=== PATIENT | female | born 1955 | race Caucasian/White ===

== ENCOUNTER 2019-01-04 06:45 | Emergency (ER) | payer MEDICARE, OTHER ==
[~2019-01-04] VITALS: Wt 74.0 kg
[2019-01-04 06:49] VITALS: BP 127/61; PULSE 74; RESP 18; Wt 74.0 kg
[2019-01-04] MEDS ORDERED: ACETAMINOPHEN 500 MG TAB PO STA (07:05)
[2019-01-04] MEDS ORDERED: IBUPROFEN 800 MG TAB PO ONE (07:30)
[2019-01-04] MEDS ORDERED: BENZ-6 PO (07:56)
[2019-01-04] MEDS ORDERED: ACET500C5 PO (07:56)
[2019-01-04] MEDS ORDERED: PROM6.2515 PO (07:56)
[2019-01-04] MEDS ORDERED: IBUP800T48 PO (07:56)
--- NOTE | 2019-01-04 08:34 | ERD ---
ER Documentation Chief Complaint Chief Complaint cough x 7 days HPI 63-year-old female presenting with fevers, body aches, productive cough, runny nose, sore throat, generalized abdominal pain x1 week. Patient denies any changes in urination or vomit. She has not taken medications today. Denies chest pain or shortness of breath. Medical history is bipolar. Surgical history pelvic sling. Social history denies ROS All systems reviewed and are negative except as per history of present illness. Medications Home Meds Active Scripts Promethazine Hcl* (Promethazine Hcl* Syrup) 6.25 Mg/5 Ml Syrup, 6.25 MG PO Q6H PRN for COUGH, #100 ML Prov:FEI BOWDEN PA-C 01/04/19 Benzonatate* (Tessalon Perle*) 100 Mg Capsule, 100 MG PO Q8H PRN for COUGH, #30 CAP Prov:FEI BOWDEN PA-C 01/04/19 Acetaminophen* (Tylophen*) 500 Mg Capsule, 2 CAP PO Q8H PRN for PAIN AND OR ELEVATED TEMP, #20 CAP Prov:FEI BOWDEN PA-C 01/04/19 Ibuprofen* (Motrin*) 800 Mg Tab, 800 MG PO Q6, #30 TAB Prov:FEI BOWDEN PA-C 01/04/19 Allergies Allergies: Coded Allergies: No Known Allergy (Unverified , 01/04/19) PMhx/Soc History of Surgery: Yes (mesh sling) Anesthesia Reaction: No Hx Neurological Disorder: No Hx Respiratory Disorders: No Hx Cardiac Disorders: No Hx Psychiatric Problems: Yes (bipolar) Hx Miscellaneous Medical Probl: No Hx Alcohol Use: Yes Hx Substance Use: No Hx Tobacco Use: No Smoking Status: Never smoker FmHx Family History: No diabetes, No coronary disease, No other Physical Exam Vitals Vital Signs Date Temp Pulse Resp B/P (MAP) Pulse Ox O2 O2 Flow FiO2 Time Delivery Rate 01/04/19 100.8 08:10 01/04/19 100.4 74 18 127/61 99 06:49 (83) Physical Exam GENERAL: The patient is well-appearing, well-nourished, in no acute distress HEENT: Atraumatic. Conjunctivae are pink. Pupils equal, round, and reactive to light. There is no scleral icterus. Tympanic membranes clear bilaterally. Oropharynx clear. NECK: C-spine is soft and supple. There is no meningismus. There is no cervical lymphadenopathy. CHEST: Clear to auscultation bilaterally. There are no rales, wheezes or rhonchi. HEART: Regular rate and rhythm. No murmurs, clicks, rubs or gallops. ABDOMEN:Soft, nontender and nondistended. Good bowel sounds. No rebound or guarding. No gross peritonitis. No gross organomegaly or masses. BACK: No midline or flank tenderness. Results 24 hrs Laboratory Tests Test 01/04/19 07:16 Urine Color SAEID Urine Clarity SLIGHTLY CLOUDY Urine pH 6.0 Urine Specific [place] 1.020 Urine Ketones TRACE mg/dL Urine Nitrite NEGATIVE mg/dL Urine Bilirubin NEGATIVE mg/dL Urine Urobilinogen 2+ mg/dL Urine Leukocyte Esterase NEGATIVE Donna/ul Urine Microscopic RBC 15 /HPF Urine Microscopic WBC 2 /HPF Urine Mucus FEW /HPF Urine Hemoglobin 2+ mg/dL Urine Glucose NEGATIVE mg/dL Urine Total Protein 1+ mg/dl Current Medications Medications Dose Sig/Rodney Start Time Status Last (Trade) Ordered Route PRN Stop Time Admin Dose Reason Admin Ibuprofen 800 mg ONCE ONCE 01/04/19 DC 01/04/19 (Motrin) PO 07:30 07:19 01/04/19 07:31 1,000 mg ONCE STAT 01/04/19 DC 01/04/19 Acetaminophen PO 07:05 07:20 (Tylenol 01/04/19 07:08 Tab) Procedures/MDM DIAGNOSTIC IMAGING REPORT Patient: LETY AVILA : 1955 Age: 63 Sex: F MR #: [id number] DOS: 01/04/19 0705 Ordering MD: GHISLAINE BOWDEN PA-C Location: [facility] Room/Bed: PROCEDURE: XR Chest. CLINICAL INDICATION: Chest pain, cough TECHNIQUE: Single frontal view of the chest was obtained COMPARISON: None FINDINGS: The heart and mediastinum are within normal limits. The lungs are clear. There is no pleural effusion or pneumothorax. The bones and soft tissue show no acute change. IMPRESSION: No definite abnormalities are identified. ER Course: Ibuprofen and Tylenol given the ED. Influenza negative. Urinalysis negative. MDM: 63-year-old female presents with fever. Patient's exam is concerning for flulike symptoms. I have low suspicion for meningitis or sepsis. I have low suspicion for cardiac abnormality or infectious process. I have low suspicion for pneumonia. Chest x-ray is within normal limits and exam is non-concerning. I have low suspicion for acute abdominal emergency, pyelonephritis or urinary tract infection. Patient's exam is non-concerning. Patient likely has viral syndrome and we discharged with supportive medications. I do not feel antibiotics are indicated. Patient is discharged with strict ER precautions and told to follow-up with primary care within 1 to 2 days for close evaluation. Patient is told symptoms change or worsen to return immediately to the ER. All questions answered at discharge Departure Diagnosis: Primary Impression: Viral syndrome Additional Impression: Fever Condition: Stable Patient Instructions: Fever Control (Adult), Viral Syndrome (Adult) Referrals: [facility] YOU HAVE RECEIVED A MEDICAL SCREENING EXAM AND THE RESULTS INDICATE THAT YOU DO NOT HAVE A CONDITION THAT REQUIRES URGENT TREATMENT IN THE EMERGENCY DEPARTMENT. FURTHER EVALUATION AND TREATMENT OF YOUR CONDITION CAN WAIT UNTIL YOU ARE SEEN IN YOUR DOCTORS OFFICE WITHIN THE NEXT 1-2 DAYS. IT IS YOUR RESPONSIBILITY TO MAKE AN APPOINTMENT FOR FOLOW-UP CARE. IF YOU HAVE A PRIMARY DOCTOR --you should call your primary doctor and schedule an appointment IF YOU DO NOT HAVE A PRIMARY DOCTOR YOU CAN CALL OUR PHYSICIAN REFERRAL HOTLINE AT IF YOU CAN NOT AFFORD TO SEE A PHYSICIAN YOU CAN CHOSE FROM THE FOLLOWING [facility] [address] [facility] [facility] [address] [facility] [facility] [address] [facility] [address] [facility] [address] [facility]. [facility] [address] [facility]. [facility]. [address] Additional Instructions: FOLLOW UP WITH YOUR PRIMARY CARE PHYSICIAN TOMORROW.Return to this facility if you are not improving as expected. FEI BOWDEN PA-C Jan 04, 2019 08:34
== END 2019-01-04 08:09 | disposition home or self-care (01) ==
LOC: FTE 06:45
DX: B34.9 Viral infection, unspecified (principal)
CPT/HCPCS: 71045; 81001; 87400